=== PATIENT | female | born 1960 | race Caucasian/White ===

== ENCOUNTER 2018-06-06 14:57 | Emergency (ER) | payer MEDICAID ==
[2018-06-06 16:13] VITALS: BP 153/88
[2018-06-06] MEDS ORDERED: CYCL-1 PO (17:55)
== END 2018-06-06 22:19 | disposition home or self-care (01) ==
LOC: ER 14:58
DX: S80.01XA Contusion of right knee, initial encounter (principal); M54.2 Cervicalgia; M79.672 Pain in left foot; Z88.6 Allergy status to analgesic agent; Z88.5 Allergy status to narcotic agent; V89.2XXA Person injured in unspecified motor-vehicle accident, traffic, initial encounter; Y93.89 Activity, other specified; Y92.410 Unspecified street and highway as the place of occurrence of the external cause; Y99.8 Other external cause status
CPT/HCPCS: 72040; 73630; 99284

== ENCOUNTER 2018-06-08 13:37 | Emergency (ER) | payer OTHER, MEDICAID ==
[~2018-06-08] VITALS: Ht 167.6 cm; Wt 79.5 kg
[~2018-06-08 13:37] MED LIST: CYCL-1 PO
[2018-06-08] MEDS ORDERED: ketorolac tromethamine 15mg/ml inj. IM ONE (14:40)
[2018-06-08] MEDS ORDERED: diazepam 5mg tablet PO ONE (14:40)
[2018-06-08] MEDS ORDERED: NAPR-56 PO (14:41)
[2018-06-08] MEDS ORDERED: METH-360 PO (14:41)
[2018-06-08 15:17] VITALS: BP 135/89
== END 2018-06-08 15:20 | disposition home or self-care (01) ==
LOC: ER 13:40
DX: S70.01XA Contusion of right hip, initial encounter (principal); S50.01XA Contusion of right elbow, initial encounter; S80.01XA Contusion of right knee, initial encounter; S90.31XA Contusion of right foot, initial encounter; J45.909 Unspecified asthma, uncomplicated; Z88.8 Allergy status to other drugs, medicaments and biological substances; Z88.5 Allergy status to narcotic agent; Z79.899 Other long term (current) drug therapy; V09.9XXA Pedestrian injured in unspecified transport accident, initial encounter; Y93.E6 Activity, residential relocation; Y92.89 Other specified places as the place of occurrence of the external cause; Y99.8 Other external cause status
CPT/HCPCS: 73070; 73502; 73620; 96372; 99284; J1885; L3260